=== PATIENT | male | born 1970 | race Caucasian/White ===

== ENCOUNTER 2018-07-29 18:14 | Inpatient (IN) | payer BC, OTHER ==
[2018-07-29] MEDS ORDERED: VANCOMYCIN 1 GM/VIAL ONE ×2 (19:13→22:35)
[2018-07-29] MEDS ORDERED: NA CHLORIDE 0.9% 250 ML ONE ×2 (19:13→22:33)
[2018-07-29] MEDS ORDERED: PIPER/TAZO/NS 3.375gm 3.375 GM/100 ML BAG ONE (19:14)
[2018-07-29 19:24] LABS: Absolute Lymphocytes (CBC) 1.7 K/uL (0.7-4.9); Absolute Monocytes 0.8 K/uL (0.1-1.3); Absolute Neutrophil 7.9 K/uL (1.8-8.0); Basophils % 0.4 % (0-1.3); Eosinophils % 5.4 % (0-4.4); Hematocrit 42.2 % (39.6-49.0); Lymphocytes % 15.5 % (15.3-44.8); MPV 7.8 fL (7.6-11.3); Monocytes % 6.9 % (3.3-12.3); RBC Red Blood Cell Count 4.72 M/uL (4.33-5.43)
[2018-07-29 19:35] LABS: Potassium 4.3 mmol/L (3.5-5.1)
--- NOTE | 2018-07-29 19:40 | ER ---
Nurse's Notes [facility] Name: Steve Cordero Age: 47 yrs Sex: Male : 1970 Arrival Date: 07/29/2018 Time: 18:19 Bed 23 Private MD: None, None Diagnosis: Cutaneous abscess of left foot;Cellulitis of left lower limb Presentation: 07/29 18:21 Presenting complaint: Patient states: stepped on a tack on left foot about a month ago sv and swelling/redness has increased. c/o fever/chills. Hx DM. Transition of care: patient was not received from another setting of care. Onset of symptoms was June 2018. Care prior to arrival: None. 18:21 Method Of Arrival: Ambulatory sv 18:21 Acuity: ADIA 3 sv 18:38 Risk Assessment: Do you want to hurt yourself or someone else? Patient reports no mg2 desire to harm self or others. Initial Sepsis Screen: Does the patient meet any 2 criteria? No. Patient's initial sepsis screen is negative. Does the patient have a suspected source of infection? No. Patient's initial sepsis screen is negative. Historical: - Allergies: 18:22 No Known Allergies; sv - PMHx: 18:22 Diabetes - IDDM; Hypertension; sv - PSHx: 18:22 None; sv - Immunization history:: Flu vaccine status is unknown. - Social history:: Smoking status: unknown. - Ebola Screening: : No symptoms or risks identified at this time. Screenin:38 Abuse screen: Denies threats or abuse. Denies injuries from another. Nutritional mg2 screening: No deficits noted. Tuberculosis screening: No symptoms or risk factors identified. Fall Risk None identified. Assessment: 19:30 General: Appears in no apparent distress. Behavior is appropriate for age. Pain: lp1 Complains of pain in ball of left foot. Neuro: No deficits noted. Cardiovascular: No deficits noted. Respiratory: No deficits noted. GI: No deficits noted. : No deficits noted. EENT: No deficits noted. Derm: Skin is pink, warm \T\ dry. Wound noted ball of left foot Wound is swelling noted, some purulent drainage noted. Musculoskeletal: No deficits noted. 20:30 Reassessment: Patient appears in no apparent distress at this time. Patient and/or lp1 family updated on plan of care and expected duration. Pain level reassessed. Patient is alert, oriented x 3, equal unlabored respirations, skin warm/dry/pink. Patient aware of pending admission. 21:22 Reassessment: Family at bedside, patient eating dinner. lp1 Vital Signs: 18:22 BP 135 / 86; Pulse 101; Resp 18; Temp 98.6; Pulse Ox 99% ; Weight 95.25 kg; Height 5 sv ft. 10 in. (177.80 cm); Pain 9/10; 19:30 BP 150 / 90; Pulse 91; Resp 18; Pulse Ox 97% on R/A; lp1 20:30 BP 157 / 91; Pulse 94; Resp 18; Pulse Ox 95% on R/A; lp1 21:22 BP 149 / 89; Pulse 94; Resp 18; Pulse Ox 96% on R/A; lp1 18:22 Body Mass Index 30.13 (95.25 kg, 177.80 cm) sv ED Course: 18:19 Patient arrived in ED. mr 18:19 None, None is Private Physician. mr 18:21 Triage completed. sv 18:22 Arm band placed on. sv 18:26 Claudio Worley MD is Attending Physician. gs 18:38 Chan Pugh, KRISTEN is Primary Nurse. mg2 18:38 No provider procedures requiring assistance completed. Patient did not have IV access mg2 during this emergency room visit. 18:39 Patient has correct armband on for positive identification. Door closed. mg2 19:00 Report given to KRISTEN Greenberg - IV fluids still pending. tw2 19:13 Inserted saline lock: 20 gauge in right antecubital area, using aseptic technique. jb5 Blood collected. 19:38 Honorio Zaldivar MD is Hospitalizing Provider. gs 19:44 Primary Nurse role handed off by Chan Pugh, KRISTEN lp1 19:44 Demetra Bruno, KRISTEN is Primary Nurse. lp1 Administered Medications: 19:40 Drug: Zosyn 3.375 grams Route: IVPB; Infused Over: 60 mins; Site: right antecubital; lp1 20:12 Follow up: IV Status: Completed infusion; IV Intake: 100ml lp1 20:13 Drug: vancoMYCIN 1 grams Route: IVPB; Infused Over: 2 hrs; Site: right antecubital; lp1 21:24 Follow up: IV Status: Infusion continued upon admission lp1 Intake: 20:12 IV: 100ml; Total: 100ml. lp1 Outcome: 19:39 Decision to Hospitalize by Provider. 19:46 Condition: stable lp1 19:46 Instructed on the need for admit. 21:18 Admitted to Med/surg accompanied by tech, via wheelchair, room 230, with chart, Report lp1 called to KRISTEN Guadarrama 21:37 Patient left the ED. lp1 Signatures: Zenobia Ervin RN RN Heather Phelan mr Bruno, Demetra RN KRISTEN lp1 Jodie Tamez RN RN tw2 Isatu Bang5 Claudio Worley MD MD Chan Pugh RN RN mg2 Corrections: (The following items were deleted from the chart) 19:08 19:00 Report given to KRISTEN Greenberg tw2 tw2
--- NOTE | 2018-07-29 19:40 | EDPHYS ---
Physician Documentation [facility] Name: Steve Cordero Age: 47 yrs Sex: Male : 1970 Arrival Date: 07/29/2018 Time: 18:19 Bed 23 Private MD: None, None ED Physician Claudio Worley HPI: 07/29 18:39 This 47 yrs old Male presents to ER via Ambulatory with complaints of Wound gs Infection. 19:20 The patient presents with cellulitis of the plantar aspect of left first toe and ball gs of left foot. Description: The affected area is moderate sized, draining, erythematous, fluctuant. Onset: The symptoms/episode began/occurred 5 day(s) ago, and became worse and became persistent. Possible cause(s): stepped on a tack. Associated signs and symptoms: Pertinent negatives: fever. Severity of symptoms: At their worst the symptoms were severe, in the emergency department the symptoms are unchanged. The patient has not experienced similar symptoms in the past. Historical: - Allergies: 18:22 No Known Allergies; sv - PMHx: 18:22 Diabetes - IDDM; Hypertension; sv - PSHx: 18:22 None; sv - Immunization history:: Flu vaccine status is unknown. - Social history:: Smoking status: unknown. - Ebola Screening: : No symptoms or risks identified at this time. ROS: 19:20 All other systems are negative. gs Exam: 19:20 Head/Face: Normocephalic, atraumatic. Eyes: Pupils equal round and reactive to light, gs extra-ocular motions intact. Lids and lashes normal. Conjunctiva and sclera are non-icteric and not injected. Cornea within normal limits. Periorbital areas with no swelling, redness, or edema. ENT: Nares patent. No nasal discharge, no septal abnormalities noted. Tympanic membranes are normal and external auditory canals are clear. Oropharynx with no redness, swelling, or masses, exudates, or evidence of obstruction, uvula midline. Mucous membranes moist. Neck: Trachea midline, no thyromegaly or masses palpated, and no cervical lymphadenopathy. Supple, full range of motion without nuchal rigidity, or vertebral point tenderness. No Meningismus. Chest/axilla: Normal chest wall appearance and motion. Nontender with no deformity. No lesions are appreciated. Cardiovascular: Regular rate and rhythm with a normal S1 and S2. No gallops, murmurs, or rubs. Normal PMI, no JVD. No pulse deficits. Respiratory: Lungs have equal breath sounds bilaterally, clear to auscultation and percussion. No rales, rhonchi or wheezes noted. No increased work of breathing, no retractions or nasal flaring. Abdomen/GI: Soft, non-tender, with normal bowel sounds. No distension or tympany. No guarding or rebound. No evidence of tenderness throughout. Back: No spinal tenderness. No costovertebral tenderness. Full range of motion. Neuro: Awake and alert, GCS 15, oriented to person, place, time, and situation. Cranial nerves II-XII grossly intact. Motor strength 5/5 in all extremities. Sensory grossly intact. Cerebellar exam normal. Normal gait. 19:20 Constitutional: The patient appears alert, awake, non-toxic. 19:20 Musculoskeletal/extremity: Extremities: noted in the ball of left foot: erythema, pain, tenderness, Circulation is intact in all extremities. 19:20 Skin: abscess, that is moderate sized, of the plantar aspect of left first toe, cellulitis, that is moderate. 19:39 Musculoskeletal/extremity: Edema, 2+ to the left ankle and left foot is noted. Vital Signs: 18:22 BP 135 / 86; Pulse 101; Resp 18; Temp 98.6; Pulse Ox 99% ; Weight 95.25 kg; Height 5 sv ft. 10 in. (177.80 cm); Pain 9/10; 19:30 BP 150 / 90; Pulse 91; Resp 18; Pulse Ox 97% on R/A; lp1 20:30 BP 157 / 91; Pulse 94; Resp 18; Pulse Ox 95% on R/A; lp1 21:22 BP 149 / 89; Pulse 94; Resp 18; Pulse Ox 96% on R/A; lp1 18:22 Body Mass Index 30.13 (95.25 kg, 177.80 cm) sv MDM: 18:43 Patient medically screened. gs 19:20 Differential diagnosis: abscess, cellulitis. Data reviewed: vital signs, nurses notes, gs lab test result(s). Response to treatment: There is no appreciated change of the patient's symptoms at this time, and as a result, I will admit patient. Physician consultation: Thaddeus Desai DPM regarding patient's condition, and will see patient in inpatient room. 07/29 18:43 Order name: CBC with Diff 07/29 18:43 Order name: Basic Metabolic Panel 07/29 18:43 Order name: Blood Culture* gs Administered Medications: 19:40 Drug: Zosyn 3.375 grams Route: IVPB; Infused Over: 60 mins; Site: right antecubital; lp1 20:12 Follow up: IV Status: Completed infusion; IV Intake: 100ml lp1 20:13 Drug: vancoMYCIN 1 grams Route: IVPB; Infused Over: 2 hrs; Site: right antecubital; lp1 21:24 Follow up: IV Status: Infusion continued upon admission lp1 Disposition: 07/29/18 19:39 Hospitalization ordered by Honorio Zaldivar for Inpatient Admission. Preliminary diagnosis are Cutaneous abscess of left foot, Cellulitis of left lower limb. - Bed requested for Telemetry/MedSurg (Inpatient). - Status is Inpatient Admission. lp1 - Condition is Stable. - Problem is new. - Symptoms are unchanged. UTI on Admission? No Signatures: Dispatcher [employer] EDMS Zenobia Ervin RN RN Mallory Hightower RN RN Demetra Bruno RN RN [facility] Claudio Worley MD MD Chan Pugh RN RN [facility] [place]rections: (The following items were deleted from the chart) 20:49 19:39 Hospitalization Ordered by Honorio Zaldivar MD for Inpatient Admission. Preliminary dw diagnosis is Cutaneous abscess of left foot; Cellulitis of left lower limb. Bed requested for Telemetry/MedSurg (Inpatient). Status is Inpatient Admission. Condition is Stable. Problem is new. Symptoms are unchanged. UTI on Admission? No. gs 21:37 20:49 07/29/2018 19:39 Hospitalization Ordered by Honorio Zaldivar MD for Inpatient lp1 Admission. Preliminary diagnosis is Cutaneous abscess of left foot; Cellulitis of left lower limb. Bed requested for Telemetry/MedSurg (Inpatient). Status is Inpatient Admission. Condition is Stable. Problem is new. Symptoms are unchanged. UTI on Admission? No. dw
--- NOTE | 2018-07-29 20:45 | P.HP ---
Certification for Inpatient Patient admitted to: Inpatient With expected LOS: >2 Midnights Practitioner: I am a practitioner with admitting privileges, knowledge of patient current condition, hospital course, and medical plan of care. Services: Services provided to patient in accordance with Admission requirements found in Title 42 Section 412.3 of the Code of Federal Regulations Patient History Date of Service: 07/29/18 Reason for admission: diabetic foot ulcer History of Present Illness: Mr Cordero is a 47 years old male with history of IDDM poorly controlled, HTN, who about 1 month ago step on a tack, then he developed a little wound, which keep his size for about 3 weeks. Then it start growing, he went to a clinic, where was evaluated, XR at that time did not show bone involvement, per patient report , he was treated with antibiotics (doxycycline and Levaquin), however, despite this, his wound got worse, become more swollen, painful and lately having yellowish discharge. He denied fever or chills, but has been feeling dizzy today. Lab work shows leukocytosis 11.1K, afebrile, BP within normal limits, but HR 101 bpm. Allergies No Known Allergies Allergy (Unverified 07/29/18 20:40) Home medications list reviewed: Yes - Past Medical/Surgical History -: DM II -: HTN Past Surgical History: Reviewed- Non-Contributory - Family History Family History: Reviewed- Non-Contributory - Social History Smoking Status: Former smoker Alcohol use: Yes CD- Drugs: No Place of Residence: Home Review of Systems 10-point ROS is otherwise unremarkable Physical Examination - Physical Exam General: Alert, In no apparent distress HEENT: Atraumatic, PERRLA, Mucous membr. moist/pink, EOMI, Sclerae nonicteric Neck: Supple, 2+ carotid pulse no bruit, No LAD, Without JVD or thyroid abnormality Respiratory: Clear to auscultation bilaterally, Normal air movement Cardiovascular: Regular rate/rhythm, Normal S1 S2 Gastrointestinal: Normal bowel sounds, No tenderness Musculoskeletal: No tenderness Integumentary: Skin lesion, Tenderness/swelling, Diabetic ulcer (left foot) Neurological: Normal gait, Normal speech, Normal strength at 5/5 x4 extr, Normal tone, Normal affect Lymphatics: No axilla or inguinal lymphadenopathy - Studies Laboratory Data (last 24 hrs) 07/29/18 19:08: Sodium 137, Potassium 4.3, BUN 21 H, Creatinine 1.08, Glucose 153 H 07/29/18 19:08: WBC 11.1 H, Hgb 14.0, Hct 42.2, Plt Count 227 Assessment and Plan - Problems (Diagnosis) (1) Diabetic foot ulcer associated with type 2 diabetes mellitus Current Visit: Yes Status: Acute Qualifiers: Diabetic foot ulcer location: midfoot Laterality: left Non-pressure ulcer stage: limited to breakdown of skin Qualified Code(s): E11.621 - Type 2 diabetes mellitus with foot ulcer; L97.421 - Non-pressure chronic ulcer of left heel and midfoot limited to breakdown of skin (2) Diabetes mellitus Current Visit: Yes Status: Acute Qualifiers: Diabetes mellitus type: type 2 Diabetes mellitus terminal gauger insulin use: with terminal gauger use Diabetes mellitus complication status: with skin complications Diabetes mellitus complication detail: with foot ulcer Qualified Code(s): E11.621 - Type 2 diabetes mellitus with foot ulcer; L97.509 - Non-pressure chronic ulcer of other part of unspecified foot with unspecified severity; Z79.4 - terminal gauger (current) use of insulin (3) HTN (hypertension) Current Visit: Yes Status: Acute Qualifiers: Hypertension type: essential hypertension Qualified Code(s): I10 - Essential (primary) hypertension - Plan The patient will be admitted to the hospital due to diabetic foot ulcer, start empiric IV antibiotics, pending foot MRI to R/O bone involvement, consult Dr Desai. - Advance Directives Does patient have a Living Will: No Does patient have a Durable POA for Healthcare: No
[2018-07-29] MEDS ORDERED: ONDANSETRON 4 MG/2 ML VIAL IV PRN (21:42)
[2018-07-29] MEDS: INSULIN -REGULAR HUMAN 50 UNIT/0.5 ML ML SQ SCH (21:42)
[2018-07-29] MEDS: NA CHLORIDE 0.9% 1,000 ML IV SCH (22:12)
[2018-07-29] MEDS ORDERED: VANCOMYCIN 750 MG in NA CHLORIDE 0.9% 250 ML IVPB ONE (22:15)
[2018-07-29] MEDS: ACETAMINOPHEN 500 MG TAB PO PRN (22:58)
[2018-07-30] MEDS: PIPER/TAZO/NS 3.375gm 3.375 GM/100 ML BAG IVPB SCH ×2 (01:08→05:11)
[2018-07-30] MEDS ORDERED: PIPER/TAZO/NS 3.375gm 6.750 GM/200 ML BAG ONE (01:15)
[2018-07-30 06:14] LABS: Absolute Lymphocytes (CBC) 1.9 K/uL (0.7-4.9); Absolute Monocytes 0.8 K/uL (0.1-1.3); Basophils % 0.3 % (0-1.3); Eosinophils % 6.3 % (0-4.4); Hematocrit 37.6 % (39.6-49.0); Lymphocytes % 23.7 % (15.3-44.8); MPV 7.9 fL (7.6-11.3); Monocytes % 9.5 % (3.3-12.3); RBC Red Blood Cell Count 4.23 M/uL (4.33-5.43)
[2018-07-30 06:21] LABS: Magnesium 1.8 mg/dL (1.8-2.4); Potassium 4.6 mmol/L (3.5-5.1)
[2018-07-30 08:29] LABS: Thyroid Stimulating Hormone 2.19 uIU/mL (0.360-3.740)
[2018-07-30] MEDS: VANCOMYCIN 1.75 GM in NA CHLORIDE 0.9% 500 ML IVPB SCH ×2 (08:41→21:38)
[2018-07-30] MEDS: INSULIN -REGULAR HUMAN 50 UNIT/0.5 ML ML SQ SCH ×4 (08:42→21:41)
[2018-07-30] MEDS: NA CHLORIDE 0.9% 1,000 ML IV SCH ×2 (08:42→17:10)
[2018-07-30] MEDS ORDERED: MAGNESIUM SULFATE 1 gm IVPB 1 GM/100 ML BAG IV ONE (09:00)
--- NOTE | 2018-07-30 10:37 | RAD REPORT ---
EXAM DESCRIPTION: MRI - Foot Left Wo Cont - 07/30/2018 9:25 am CLINICAL HISTORY: Evaluate left foot ulcer Diabetic foot ulcer, possible osteomyelitis. COMPARISON: No comparisons FINDINGS: Ill-defined soft tissue edema and thickening is present along the plantar aspect of the fo refoot adjacent to the first MTP joint. Small focal soft tissue ulceration is present in the region. T1 marrow signal throughout the forefoot osseous structures is maintained. There is no evidence of os teomyelitis. No drainable fluid collection is seen. IMPRESSION: No evidence of osteomyelitis is identified.
--- NOTE | 2018-07-30 11:23 | P.CNS ---
Date of Consult: 07/30/18 Reason for Consult: wound left foot Chief Complaint: diabetic foot ulcer History of Present Illness: Patient states that about 1 month ago he stepped on a tack while walking in [place]. Noticed a clicking sound and found the tack. When he got home he took the shoe off and notice a small puncture wound. He then treated the wound on his own for three weeks with topical creams. Noticed increased redness and discoloration to wound and was seen in a clinic near [place]. Xrays negative for bone involvement. Was placed on Doxycyline and Levaquin without resolution. The patient noticed that the wound was getting worse and returned to the clinic and they wanted to admit him. He is from [place] and wanted to get home. Patient then presented to [facility] ER and was admitted Allergies No Known Allergies Allergy (Verified 07/29/18 22:11) Home Medications: Doxycycline Hyclate [Vibramycin] 100 mg PO DAILY 07/29/18 Ibuprofen [Motrin Ib] 2 tab PO DAILY 07/29/18 Insulin 70/30 NPH/Reg Human [Novolin 70/30*] 25 units PO BID 07/29/18 Metformin ER [Glucophage ER*] 1 tab PO 0630 07/29/18 levoFLOXacin [Levaquin] 750 mg PO DAILY 07/29/18 - Past Medical/Surgical History Diabetic: Yes -: DM II -: HTN - Social History Smoking Status: Unknown if ever smoked Alcohol use: Yes CD- Drugs: No Caffeine use: Yes Place of Residence: Home Review of Systems 10-point ROS is otherwise unremarkable Physical Examination Temp Pulse Resp BP Pulse Ox 97.8 F 82 17 127/81 92 07/30/18 08:00 07/30/18 08:00 07/30/18 08:00 07/30/18 08:00 07/30/18 08:00 General: Alert, In no apparent distress, Oriented x3 Cardiovascular: No edema, Normal pulses Capillary refill: <2 Seconds Musculoskeletal: No clubbing, No swelling, No contractures, No erythema, No tenderness, No warmth Integumentary: Diabetic ulcer (wound sub left first mpj with bullous formation. Upon debridement of lesion noted a puncture wound plantar central left 1st mpj with periwound erythema. Area was probed with a hemostat and noted to track at 2:00 toward the second digit. No purulence expressed from wound. No probing to bone. ) Neurological: Abnormal sensation (insensate left foot) Laboratory Data (last 24 hrs) 07/29/18 19:08: Sodium 137, Potassium 4.3, BUN 21 H, Creatinine 1.08, Glucose 153 H 07/29/18 19:08: WBC 11.1 H, Hgb 14.0, Hct 42.2, Plt Count 227 Imagings Data: MRI left foot negative for osteomyelitis - Problems (1) Diabetic foot ulcer associated with type 2 diabetes mellitus Current Visit: Yes Status: Acute Plan: Pack wound bid with nugauze and continue current iv antibiotics. Wound was cultured, can tailor antibiotics to specimen when wound culture/sensitivity returns Qualifiers: Diabetic foot ulcer location: midfoot Laterality: left Non-pressure ulcer stage: limited to breakdown of skin Qualified Code(s): E11.621 - Type 2 diabetes mellitus with foot ulcer; L97.421 - Non-pressure chronic ulcer of left heel and midfoot limited to breakdown of skin Physician Review: Patient Assessed, Agree with Above Assessment and Plan Critical Care: Yes Time Spent Managing Pts care (In Minutes): 30
[2018-07-30] MEDS: ACETAMINOPHEN 500 MG TAB PO PRN (13:44)
[2018-07-30] MEDS ORDERED: HYDROCODONE/APAP 7.5/325 MG TAB PO PRN (14:11)
[2018-07-30] MEDS ORDERED: TRAMADOL HCL 50 MG TAB PO PRN (14:11)
[2018-07-30] MEDS ORDERED: D50W 25 GM/50 ML SYRINGE IV PRN (14:11)
[2018-07-30] MEDS ORDERED: GLUCAGON 1 MG/VIAL IM PRN (14:11)
--- NOTE | 2018-07-30 14:20 | P.PN ---
Subjective Date of Service: 07/30/18 Primary Care Provider: none Chief Complaint: diabetic foot ulcer Subjective: Doing well Physical Examination - Vital Signs Temperature: 98.4 F Blood Pressure: 152/93 Pulse: 75 Respirations: 18 Pulse Ox (%): 99 - Physical Exam General: Alert, In no apparent distress, Oriented x3, Cooperative HEENT: Atraumatic Neck: Supple Respiratory: Clear to auscultation bilaterally, Normal air movement Cardiovascular: Normal pulses, Regular rate/rhythm Gastrointestinal: Normal bowel sounds, Soft and benign, Non-distended Musculoskeletal: Other (Erythema and swelling to the left plantar aspect of the forefoot near the great toe.) Neurological: Normal speech, Normal strength at 5/5 x4 extr, Normal tone, Normal affect - Studies Laboratory Data (last 24 hrs) 07/29/18 19:08: Sodium 137, Potassium 4.3, BUN 21 H, Creatinine 1.08, Glucose 153 H 07/29/18 19:08: WBC 11.1 H, Hgb 14.0, Hct 42.2, Plt Count 227 Medications List Reviewed: Yes Assessment & Plan Discharge Plan: Home Plan to discharge in: 72 Hours Physician Review Additional Text: Impression: Diabetic left foot cellulitis to the plantar aspect of the forefoot near the great toe Diabetes mellitus type 2 uncontrolled Hypertension Diabetic neuropathy Obesity, BMI-30 Plan: Diabetic left foot cellulitis to the plantar aspect of the forefoot near the great toe: MRI shows no osteomyelitis. Case discussed with podiatry. Podiatry performed I/D at bedside. Antibiotics adjusted. Patient now on IV vancomycin and cefepime. Will continue to monitor closely. Patient may require further debridement. Anticipate discharge in the next 3-5 days. Diabetes mellitus type 2 uncontrolled: A1c elevated. Will start basal insulin- Lantus 10 units subcu twice daily. Will monitor and adjust appropriately. Will provide sliding scale. Hypertension: Blood pressure slightly elevated. Will start low-dose lisinopril. Will monitor and adjust. Diabetic neuropathy: Will provide medication for pain. Will provide Neurontin. Obesity, BMI-30: Will address lifestyle modification education. Time Spent Managing Pts Care (In Minutes): 55
[2018-07-30] MEDS ORDERED: PIPER/TAZO/NS 3.375gm 3.375 GM/100 ML BAG IVPB SCH (15:00)
[2018-07-30 16:17] LABS: Urine Appearance CLEAR; Urine Bilirubin NEGATIVE (NEG); Urine Blood NEGATIVE (NEG); Urine Color YELLOW; Urine Glucose 2+ (NEG); Urine Protein NEGATIVE (NEG); Urine pH 5.5 (5.0-7.0)
[2018-07-30 16:20] LABS: Urine Microscopic Reflex NO UMIC
[2018-07-30] MEDS: ENOXAPARIN 40 MG/0.4 ML SQ SCH (17:10)
[2018-07-30] MEDS: CEFEPIME/SWI 1gm 10 ML IVP SCH (17:11)
[2018-07-30] MEDS ORDERED: LISINOPRIL 5 MG TAB PO SCH (21:00)
[2018-07-30] MEDS: FAMOTIDINE 20 MG TAB PO SCH (21:39)
[2018-07-30] MEDS: INSULIN GLARGINE 100 UNITS/ML SQ SCH (21:40)
[2018-07-31] MEDS: NA CHLORIDE 0.9% 1,000 ML IV SCH ×3 (06:33→23:42)
[2018-07-31 06:50] LABS: Absolute Lymphocytes (CBC) 1.5 K/uL (0.7-4.9); Absolute Monocytes 0.6 K/uL (0.1-1.3); Absolute Neutrophil 6.4 K/uL (1.8-8.0); Basophils % 0.5 % (0-1.3); Eosinophils % 3.3 % (0-4.4); Hematocrit 35.4 % (39.6-49.0); MPV 7.9 fL (7.6-11.3); Monocytes % 6.4 % (3.3-12.3); RBC Red Blood Cell Count 4.02 M/uL (4.33-5.43)
--- NOTE | 2018-07-31 06:56 | RAD REPORT ---
EXAM DESCRIPTION: US - Lower Extremity Arterial Bilat - 07/30/2018 10:32 pm CLINICAL HISTORY: Peripheral vascular disease COMPARISON: None. TECHNIQUE: Bilateral brachial artery pressure measurements were obtained. Waveforms were obtained al sally the length of each lower extremity. Ankle pressure measurements were obtained with index values c alculated. Visual inspection of the lower extremity arterial tree performed. FINDINGS: Bilateral brachial artery pressure measurements are symmetric. DENISE values are 1.12 on the right and 1.15 on the left. Toe index values are 0.88 on the right and 1.04 on the left. No occlusion or focal flow restricting lesion identifiable. Triphasic waveform pattern is seen along the length of the right lower extremity. No significant degree of vascular disease identifiable. No significant atherosclerotic changes in the left lower extremity. Triphasic and monophasic waveform patterns were seen on the left. IMPRESSION: No significant lower extremity peripheral arterial disease. No occlusion or flow restric ting lesion. DENISE values are normal range.
[2018-07-31 06:58] LABS: BUN Blood Urea Nitrogen 12 mg/dL (7-18); Bicarbonate 26 mmol/L (21-32); Glucose Level 201 mg/dL (74-106); HDL Cholesterol 24 mg/dL (40-60); LDL Cholesterol, Calculated 94 (<130); Magnesium 1.8 mg/dL (1.8-2.4); Potassium 4.1 mmol/L (3.5-5.1); Sodium Level 140 mmol/L (136-145)
[2018-07-31] MEDS: INSULIN -REGULAR HUMAN 50 UNIT/0.5 ML ML SQ SCH ×5 (07:30→21:00)
--- NOTE | 2018-07-31 07:40 | P.PN ---
Subjective Date of Service: 07/31/18 Primary Care Provider: none Chief Complaint: diabetic foot ulcer Subjective: No C/O voiced, Tolerating diet, Improving, Doing well Review of Systems 10-point ROS is otherwise unremarkable Physical Examination - Vital Signs Temperature: 97.5 F Blood Pressure: 90/52 Pulse: 77 Respirations: 16 Pulse Ox (%): 97 - Physical Exam General: Alert, In no apparent distress, Oriented x3 Cardiovascular: No edema, Normal pulses Capillary refill: <2 Seconds Musculoskeletal: No clubbing, No swelling, No contractures, No erythema, No tenderness, No warmth Integumentary: Diabetic ulcer (ulceration plantar left 1st mpj is improved. Decreased erythema, decreased edema, no purulence. Tracking is decreasing in depth. ) Neurological: Abnormal sensation - Studies Medications List Reviewed: Yes Assessment And Plan - Current Problems (Diagnosis) (1) Diabetic foot ulcer associated with type 2 diabetes mellitus Current Visit: Yes Status: Acute Plan: Pack wound bid with nugauze and continue current iv antibiotics. Wound was cultured, can tailor antibiotics to specimen when wound culture/sensitivity returns Qualifiers: Diabetic foot ulcer location: midfoot Laterality: left Non-pressure ulcer stage: limited to breakdown of skin Qualified Code(s): E11.621 - Type 2 diabetes mellitus with foot ulcer; L97.421 - Non-pressure chronic ulcer of left heel and midfoot limited to breakdown of skin - Plan Continue current IV antibiotics until wound cultures return. Will tailor antibiotics at that time. Continue packing wound bid and nonweightbearing left foot. Patient to follow up in wound care 08/04/18 Physician Review: Patient Assessed, Agree with Above Assessment and Plan Physician Review Additional Text: Impression: Diabetic left foot cellulitis to the plantar aspect of the forefoot near the great toe Diabetes mellitus type 2 uncontrolled Hypertension Diabetic neuropathy Obesity, BMI-30 Plan: Diabetic left foot cellulitis to the plantar aspect of the forefoot near the great toe: MRI shows no osteomyelitis. Case discussed with podiatry. Podiatry performed I/D at bedside. Antibiotics adjusted. Patient now on IV vancomycin and cefepime. Will continue to monitor closely. Patient may require further debridement. Anticipate discharge in the next 3-5 days. Diabetes mellitus type 2 uncontrolled: A1c elevated. Will start basal insulin- Lantus 10 units subcu twice daily. Will monitor and adjust appropriately. Will provide sliding scale. Hypertension: Blood pressure slightly elevated. Will start low-dose lisinopril. Will monitor and adjust. Diabetic neuropathy: Will provide medication for pain. Will provide Neurontin. Obesity, BMI-30: Will address lifestyle modification education.
[2018-07-31] MEDS: INSULIN GLARGINE 100 UNITS/ML SQ SCH ×2 (08:35→21:40)
[2018-07-31] MEDS: CEFEPIME/SWI 1gm 10 ML IVP SCH (08:36)
[2018-07-31] MEDS: FAMOTIDINE 20 MG TAB PO SCH ×2 (08:37→20:01)
[2018-07-31] MEDS ORDERED: MAGNESIUM SULFATE 1 gm IVPB 1 GM/100 ML BAG IV ONE (09:00)
[2018-07-31] MEDS ORDERED: CEFEPIME 1 GM/VIAL IV SCH (09:00)
[2018-07-31] MEDS ORDERED: NA CHLORIDE 0.9% 500 ML IV ONE (09:22)
--- NOTE | 2018-07-31 09:25 | P.PN ---
Subjective Date of Service: 07/31/18 Primary Care Provider: none Chief Complaint: diabetic foot ulcer Subjective: Improving, Doing well Physical Examination - Vital Signs Temperature: 97.5 F Blood Pressure: 90/52 Pulse: 77 Respirations: 16 Pulse Ox (%): 97 - Physical Exam General: Alert, In no apparent distress, Cooperative HEENT: Atraumatic Neck: Supple Respiratory: Clear to auscultation bilaterally, Normal air movement Cardiovascular: Normal pulses, Regular rate/rhythm Gastrointestinal: Normal bowel sounds, Soft and benign, Non-distended Musculoskeletal: Other (Swelling to the foot improved. Status post I and D yesterday) - Studies Medications List Reviewed: Yes Assessment & Plan Discharge Plan: Home Plan to discharge in: 48 Hours Physician Review Additional Text: Impression: Diabetic left foot cellulitis to the plantar aspect of the forefoot near the great toe status post bedside at Diabetes mellitus type 2 uncontrolled Hypertension Diabetic neuropathy Obesity, BMI-30 Plan: Diabetic left foot cellulitis to the plantar aspect of the forefoot near the great toe status post bedside I and D: MRI shows no osteomyelitis. Case discussed with podiatry. Will continue with IV antibiotic therapy. Await wound culture results. Anticipate discharge in the next 48 hr if improved. Patient will need to follow up with podiatry next [facility]. Will ambulate patient. Continue monitor closely. Diabetes mellitus type 2 uncontrolled: A1c elevated. Patient started on Lantus. Will consider adding metformin at discharge. Lifestyle modification education addressed. Hypertension: Blood pressure was low today. Will hold lisinopril. Will provide IV fluids. Will monitor closely. Patient may not require medication at discharge. Diabetic neuropathy: Will continue to provide medication for pain. Will also provide Neurontin. Obesity, BMI-30: Will continue to address lifestyle modification education. Time Spent Managing Pts Care (In Minutes): 55
[2018-07-31] MEDS: VANCOMYCIN 1.75 GM in NA CHLORIDE 0.9% 500 ML IVPB SCH ×2 (11:05→20:00)
[2018-07-31] MEDS ORDERED: HYDRALAZINE HCL 20 MG/ML VIAL IV PRN (11:55)
[2018-07-31] MEDS: ENOXAPARIN 40 MG/0.4 ML SQ SCH (17:18)
[2018-07-31] MEDS: ACETAMINOPHEN 500 MG TAB PO PRN (21:45)
[2018-08-01 05:31] LABS: Absolute Lymphocytes (CBC) 1.6 K/uL (0.7-4.9); Absolute Monocytes 0.6 K/uL (0.1-1.3); Absolute Neutrophil 5.9 K/uL (1.8-8.0); Basophils % 0.5 % (0-1.3); Eosinophils % 4.1 % (0-4.4); Hematocrit 33.6 % (39.6-49.0); Lymphocytes % 19.2 % (15.3-44.8); MPV 7.9 fL (7.6-11.3); Monocytes % 7.5 % (3.3-12.3); RBC Red Blood Cell Count 3.79 M/uL (4.33-5.43)
[2018-08-01 05:34] LABS: BUN Blood Urea Nitrogen 9 mg/dL (7-18); Bicarbonate 30 mmol/L (21-32); Glucose Level 153 mg/dL (74-106); Magnesium 1.9 mg/dL (1.8-2.4); Potassium 3.8 mmol/L (3.5-5.1); Sodium Level 140 mmol/L (136-145)
[2018-08-01] MEDS: INSULIN -REGULAR HUMAN 50 UNIT/0.5 ML ML SQ SCH ×4 (07:30→21:00)
[2018-08-01] MEDS ORDERED: POTASSIUM CL SA 10 MEQ TAB PO ONE (09:00)
[2018-08-01] MEDS: NA CHLORIDE 0.9% 1,000 ML IV SCH ×2 (09:14→19:42)
[2018-08-01] MEDS: VANCOMYCIN 1.75 GM in NA CHLORIDE 0.9% 500 ML IVPB SCH ×2 (09:17→22:51)
[2018-08-01] MEDS: FAMOTIDINE 20 MG TAB PO SCH ×2 (09:17→20:40)
[2018-08-01] MEDS: CEFEPIME/SWI 1gm 10 ML IVP SCH (09:18)
[2018-08-01] MEDS: INSULIN GLARGINE 100 UNITS/ML SQ SCH ×2 (09:53→20:39)
--- NOTE | 2018-08-01 11:24 | P.PN ---
Subjective Date of Service: 08/01/18 Primary Care Provider: none Chief Complaint: diabetic foot ulcer Subjective: Improving Physical Examination - Vital Signs Temperature: 97.3 F Blood Pressure: 87/52 Pulse: 79 Respirations: 18 Pulse Ox (%): 98 - Physical Exam General: Alert, In no apparent distress, Oriented x3, Cooperative HEENT: Atraumatic Neck: Supple Respiratory: Clear to auscultation bilaterally, Normal air movement Cardiovascular: Normal pulses, Regular rate/rhythm Gastrointestinal: Normal bowel sounds, Soft and benign, Non-distended Integumentary: Other (Erythema and swelling to the left forefoot improved.) - Studies Medications List Reviewed: Yes Assessment & Plan Discharge Plan: Home Plan to discharge in: 24 Hours Physician Review Additional Text: Impression: Diabetic left foot cellulitis to the plantar aspect of the forefoot near the great toe status post bedside at Diabetes mellitus type 2 uncontrolled Hypertension Diabetic neuropathy Obesity, BMI-30 Plan: Diabetic left foot cellulitis to the plantar aspect of the forefoot near the great toe status post bedside I and D: MRI shows no osteomyelitis. Case discussed with podiatry yesterday. Will continue with IV antibiotic therapy. Await wound culture results. Anticipate discharge weekly tomorrow. Will ambulate patient. Patient will need to follow up with [facility]iatry [facility]. Continue monitor closely. Diabetes mellitus type 2 uncontrolled: A1c elevated. Patient currently on Lantus. Will consider adding metformin at discharge. Lifestyle modification education addressed. Overall stable Hypertension: Blood pressure was low today. I will continue to hold lisinopril. Will check orthostatics and verify blood pressure readings. Patient clinically appears stable on my exam. No headaches, dizziness per patient. Patient ambulating well. Patient may not require medication at discharge. Diabetic neuropathy: Will continue to provide medication for pain. Will also provide Neurontin. Obesity, BMI-30: Will continue to address lifestyle modification education. Time Spent Managing Pts Care (In Minutes): 55
[2018-08-01] MEDS: ENOXAPARIN 40 MG/0.4 ML SQ SCH (17:13)
[2018-08-01] MEDS: ACETAMINOPHEN 500 MG TAB PO PRN (20:40)
[2018-08-02] MEDS: NA CHLORIDE 0.9% 1,000 ML IV SCH (02:27)
[2018-08-02 06:04] LABS: BUN Blood Urea Nitrogen 15 mg/dL (7-18); Bicarbonate 30 mmol/L (21-32); Glucose Level 170 mg/dL (74-106); Magnesium 1.8 mg/dL (1.8-2.4); Potassium 3.8 mmol/L (3.5-5.1); Sodium Level 143 mmol/L (136-145)
[2018-08-02 06:12] LABS: Absolute Lymphocytes (CBC) 1.6 K/uL (0.7-4.9); Absolute Monocytes 0.5 K/uL (0.1-1.3); Absolute Neutrophil 6.2 K/uL (1.8-8.0); Basophils % 0.5 % (0-1.3); Eosinophils % 3.5 % (0-4.4); Hematocrit 35.1 % (39.6-49.0); Lymphocytes % 18.4 % (15.3-44.8); MPV 8.1 fL (7.6-11.3); Monocytes % 6.2 % (3.3-12.3); RBC Red Blood Cell Count 4.01 M/uL (4.33-5.43)
[2018-08-02] MEDS ORDERED: MAGNESIUM SULFATE 1 gm IVPB 1 GM/100 ML BAG IV ONE (06:45)
[2018-08-02] MEDS: INSULIN -REGULAR HUMAN 50 UNIT/0.5 ML ML SQ SCH ×4 (08:41→20:05)
[2018-08-02] MEDS: FAMOTIDINE 20 MG TAB PO SCH ×2 (08:41→20:02)
[2018-08-02] MEDS: INSULIN GLARGINE 100 UNITS/ML SQ SCH ×2 (08:42→20:37)
[2018-08-02] MEDS: VANCOMYCIN 1.75 GM in NA CHLORIDE 0.9% 500 ML IVPB SCH ×2 (08:43→20:03)
[2018-08-02] MEDS: CEFEPIME/SWI 1gm 10 ML IVP SCH ×2 (08:44→20:03)
[2018-08-02] MEDS ORDERED: POTASSIUM 25 MEQ EFFERV TAB PO ONE (09:00)
--- NOTE | 2018-08-02 10:05 | P.PN ---
Subjective Date of Service: 08/02/18 Primary Care Provider: none Chief Complaint: diabetic foot ulcer Subjective: Other (Patient with increased swelling to the left foot.) Physical Examination - Vital Signs Temperature: 97 F Blood Pressure: 139/74 Pulse: 78 Respirations: 18 Pulse Ox (%): 97 - Physical Exam General: Alert, In no apparent distress, Oriented x3, Cooperative HEENT: Atraumatic Neck: Supple Respiratory: Clear to auscultation bilaterally, Normal air movement Cardiovascular: Normal pulses, Regular rate/rhythm Gastrointestinal: Normal bowel sounds, Soft and benign, Non-distended, No masses , No rebound, No guarding Integumentary: Other (Increased swelling to the left foot. Mild erythema noted. Some warmth noted. Slightly worse from yesterday.) Neurological: Normal speech, Normal strength at 5/5 x4 extr, Normal tone, Normal affect - Studies Medications List Reviewed: Yes Assessment & Plan Discharge Plan: Home Plan to discharge in: 24 Hours Physician Review Additional Text: Impression: Diabetic left foot cellulitis to the plantar aspect of the forefoot near the great toe status post bedside at Diabetes mellitus type 2 uncontrolled Hypertension Diabetic neuropathy Obesity, BMI-30 Plan: Diabetic left foot cellulitis to the plantar aspect of the forefoot near the great toe status post bedside I and D: MRI shows no osteomyelitis. Increased swelling and erythema noted to the left foot compared to yesterday. Case discussed with podiatry. Will keep the patient NPO as the patient will likely require further debridement. Continue IV antibiotic therapy. White count within normal range. Patient afebrile. Anticipate discharge in the next 24-48 hr if improvement noted. Diabetes mellitus type 2 uncontrolled: A1c elevated. Continue with Lantus. Will consider adding metformin at discharge. Lifestyle modification education addressed. Overall stable Hypertension: Blood pressure was slightly low yesterday. Patient currently off medication at this time. Will monitor off medication. Patient may require low-dose Rodriguez at discharge. Diabetic neuropathy: Will continue to provide medication for pain. Will also provide Neurontin. Obesity, BMI-30: Will continue to address lifestyle modification education. Time Spent Managing Pts Care (In Minutes): 55
--- NOTE | 2018-08-02 12:02 | P.PN ---
Subjective Date of Service: 08/02/18 Primary Care Provider: none Chief Complaint: diabetic foot ulcer Subjective: New changes (Patient notes increase in swelling to left foot. No increase in pain) Review of Systems 10-point ROS is otherwise unremarkable Physical Examination - Vital Signs Temperature: 97 F Blood Pressure: 139/74 Pulse: 78 Respirations: 18 Pulse Ox (%): 97 - Physical Exam General: Alert, In no apparent distress, Oriented x3 Cardiovascular: Normal pulses Capillary refill: <2 Seconds Musculoskeletal: No clubbing, No swelling, No contractures, Erythema, Tenderness (erythema and edema noted plantar left foot, slightly increased compared to two days ago.) Integumentary: Diabetic ulcer (wound plantar left 1st mpj had no packing in it. Cotton tip applicator used to probe the wound with tracking noted to be 3.5 cm at two o'clock. Area of pain on palpation proximal to wound was probed with no purulence being exuded from wound. No probing to bone. ) Neurological: Abnormal sensation - Studies Medications List Reviewed: Yes Assessment And Plan - Current Problems (Diagnosis) (1) Diabetic foot ulcer associated with type 2 diabetes mellitus Current Visit: Yes Status: Acute Plan: Pack wound bid with nugauze and continue current iv antibiotics. Wound was cultured, can tailor antibiotics to specimen when wound culture/sensitivity returns Qualifiers: Diabetic foot ulcer location: midfoot Laterality: left Non-pressure ulcer stage: limited to breakdown of skin Qualified Code(s): E11.621 - Type 2 diabetes mellitus with foot ulcer; L97.421 - Non-pressure chronic ulcer of left heel and midfoot limited to breakdown of skin - Plan Continue current IV antibiotics until wound cultures return. Will tailor antibiotics at that time. Continue packing wound bid and nonweightbearing left foot. Patient to follow up in wound care 08/04/18 Patient to have wound packed bid. Without having the wound packed the area will continue to swell and have a possiblity to harbor infection Physician Review: Patient Assessed, Agree with Above Assessment and Plan Physician Review Additional Text: Impression: Diabetic left foot cellulitis to the plantar aspect of the forefoot near the great toe status post bedside at Diabetes mellitus type 2 uncontrolled Hypertension Diabetic neuropathy Obesity, BMI-30 Plan: Diabetic left foot cellulitis to the plantar aspect of the forefoot near the great toe status post bedside I and D: MRI shows no osteomyelitis. Increased swelling and erythema noted to the left foot compared to yesterday. Case discussed with podiatry. Will keep the patient NPO as the patient will likely require further debridement. Continue IV antibiotic therapy. White count within normal range. Patient afebrile. Anticipate discharge in the next 24-48 hr if improvement noted. Diabetes mellitus type 2 uncontrolled: A1c elevated. Continue with Lantus. Will consider adding metformin at discharge. Lifestyle modification education addressed. Overall stable Hypertension: Blood pressure was slightly low yesterday. Patient currently off medication at this time. Will monitor off medication. Patient may require low-dose Rodriguez at discharge. Diabetic neuropathy: Will continue to provide medication for pain. Will also provide Neurontin. Obesity, BMI-30: Will continue to address lifestyle modification education.
[2018-08-02] MEDS: ENOXAPARIN 40 MG/0.4 ML SQ SCH (17:16)
[2018-08-02] MEDS: ACETAMINOPHEN 500 MG TAB PO PRN (20:03)
[2018-08-02] MEDS: GABAPENTIN 100 MG CAP PO PRN (20:08)
[2018-08-03] MEDS: INSULIN -REGULAR HUMAN 50 UNIT/0.5 ML ML SQ SCH ×2 (07:30→11:30)
--- NOTE | 2018-08-03 08:21 | P.DS ---
Admission Date: 07/29/18 Discharge Date: 08/03/18 Primary Care Provider: none Disposition: ROUTINE DISCHARGE Discharge Condition: GOOD Reason for Admission: diabetic foot ulcer Consultations: Podiatry-Dr. Desai Procedures: MRI: COMPARISON: No comparisons FINDINGS: Ill-defined soft tissue edema and thickening is present along the plantar aspect of the forefoot adjacent to the first MTP joint. Small focal soft tissue ulceration is present in the region. T1 marrow signal throughout the forefoot osseous structures is maintained. There is no evidence of osteomyelitis. No drainable fluid collection is seen. IMPRESSION: No evidence of osteomyelitis is identified Vascular doppler: COMPARISON: None. TECHNIQUE: Bilateral brachial artery pressure measurements were obtained. Waveforms were obtained along the length of each lower extremity. Ankle pressure measurements were obtained with index values calculated. Visual inspection of the lower extremity arterial tree performed. FINDINGS: Bilateral brachial artery pressure measurements are symmetric. DENISE values are 1.12 on the right and 1.15 on the left. Toe index values are 0.88 on the right and 1.04 on the left. No occlusion or focal flow restricting lesion identifiable. Triphasic waveform pattern is seen along the length of the right lower extremity. No significant degree of vascular disease identifiable. No significant atherosclerotic changes in the left lower extremity. Triphasic and monophasic waveform patterns were seen on the left. IMPRESSION: No significant lower extremity peripheral arterial disease. No occlusion or flow restricting lesion. DENISE values are normal range. Medical Problem List: Vital Signs/Physical Exam: Temp Pulse Resp BP Pulse Ox 97.2 F 64 20 139/78 96 08/03/18 04:00 08/03/18 04:00 08/03/18 04:00 08/03/18 04:00 08/03/18 04:00 Laboratory Data at Discharge: WBC 8.7 K/uL (4.3-10.9) 08/02/18 05:03 Hgb 12.0 g/dL (13.6-17.9) L 08/02/18 05:03 Hct 35.1 % (39.6-49.0) L 08/02/18 05:03 Plt Count 225 K/uL (152-406) 08/02/18 05:03 Sodium 143 mmol/L (136-145) 08/02/18 05:03 Potassium 3.8 mmol/L (3.5-5.1) 08/02/18 05:03 BUN 15 mg/dL (7-18) 08/02/18 05:03 Creatinine 0.87 mg/dL (0.55-1.3) 08/02/18 05:03 Glucose 170 mg/dL (74-106) H 08/02/18 05:03 Magnesium 1.8 mg/dL (1.8-2.4) 08/02/18 05:03 Triglycerides 82 mg/dL (<150) 07/31/18 06:29 Cholesterol 134 mg/dL (<200) 07/31/18 06:29 HDL Cholesterol 24 mg/dL (40-60) L 07/31/18 06:29 Cholesterol/HDL Ratio 5.58 07/31/18 06:29 Home Medications: Doxycycline Hyclate [Vibramycin] 100 mg PO DAILY 07/29/18 Ibuprofen [Motrin Ib] 2 tab PO DAILY 07/29/18 Insulin 70/30 NPH/Reg Human [Novolin 70/30*] 25 units PO BID 07/29/18 Metformin ER [Glucophage ER*] 1 [place] [address]/29/18 levoFLOXacin [Levaquin] 750 mg PO DAILY 07/29/18
--- NOTE | 2018-08-03 08:29 | P.DS ---
Admission Date: 07/29/18 Discharge Date: 08/03/18 Primary Care Provider: none Disposition: ROUTINE DISCHARGE Discharge Condition: GOOD Reason for Admission: diabetic foot ulcer Consultations: Podiatry-Dr. Desai Procedures: MRI: COMPARISON: No comparisons FINDINGS: Ill-defined soft tissue edema and thickening is present along the plantar aspect of the forefoot adjacent to the first MTP joint. Small focal soft tissue ulceration is present in the region. T1 marrow signal throughout the forefoot osseous structures is maintained. There is no evidence of osteomyelitis. No drainable fluid collection is seen. IMPRESSION: No evidence of osteomyelitis is identified Vascular doppler: COMPARISON: None. TECHNIQUE: Bilateral brachial artery pressure measurements were obtained. Waveforms were obtained along the length of each lower extremity. Ankle pressure measurements were obtained with index values calculated. Visual inspection of the lower extremity arterial tree performed. FINDINGS: Bilateral brachial artery pressure measurements are symmetric. DENISE values are 1.12 on the right and 1.15 on the left. Toe index values are 0.88 on the right and 1.04 on the left. No occlusion or focal flow restricting lesion identifiable. Triphasic waveform pattern is seen along the length of the right lower extremity. No significant degree of vascular disease identifiable. No significant atherosclerotic changes in the left lower extremity. Triphasic and monophasic waveform patterns were seen on the left. IMPRESSION: No significant lower extremity peripheral arterial disease. No occlusion or flow restricting lesion. DENISE values are normal range. Medical Problem List: Diabetic left foot cellulitis to the plantar aspect of the forefoot near the great toe secondary to puncture wound and failed outpatient therapy status post bedside I/D Diabetes mellitus type 2 uncontrolled, A1c 9.1 Hypertension Diabetic neuropathy Obesity, BMI-30 Brief History of Present Illness: 47-year-old male presented to the emergency room with cellulitis to the left forefoot and great toe. Patient had stepped on a tack about 1 month ago. He was started on antibiotic therapy-Levaquin/doxycycline by an out of town clinic. Patient was to establish care with podiatry but was admitted for further treatment. Hospital Course: Patient presented with diabetic foot cellulitis secondary to puncture wound to the plantar aspect of the left forefoot near the great toe. Patient failed outpatient antibiotic therapy. Patient admitted for IV antibiotic therapy. MRI shows no osteomyelitis. Arterial Doppler shows no peripheral vascular disease. Podiatry was consulted. Podiatry performed bedside I and D. His condition slowly improved. Patient required further wound care during his stay as packing was not done adequately. This was addressed by podiatry and specific instructions were given. This was followed with improvement. Blood and wound cultures negative. At discharge patient without any significant pain improved. At discharge patient will continue with Augmentin 875 mg 1 pill twice daily and doxycycline 100 mg 1 pill twice daily for 10 days. Patient will continue with wound care including packing. Patient to follow podiatry recommendations and instructions. Patient will be taught prior to discharge. Patient will [facility] for further monitoring. Patient with underlying diabetes mellitus type 2. This is uncontrolled. Patient previously on metformin and insulin 70/30. A1c 9.1. Medication was adjusted during his stay for better diabetic control. At discharge blood sugars better controlled. Patient will continue with Levemir 10 units subcu twice daily and metformin 500 mg 1 pill twice daily. Patient to monitor his blood sugars at least twice daily. Recommend to maintain blood sugars less 140 fasting and less than 200 after meals. Further adjustment can be done by his PCP. Patient to establish care with PCP in the area for continued management. Diabetic education along with medication education will be provided at discharge. Patient with hypertension. Medication adjusted during his stay. At discharge he will continue with lisinopril 5 mg daily. Further adjustment can be done by his PCP. Patient with diabetic neuropathy. Patient will continue with Neurontin 100 mg 1 pill twice daily as needed for pain. Further adjustment can be done by his PCP. Patient with obesity, BMI 30. Lifestyle modification education provided. Vital Signs/Physical Exam: Temp Pulse Resp BP Pulse Ox 97.2 F 64 20 139/78 96 08/03/18 04:00 08/03/18 04:00 08/03/18 04:00 08/03/18 04:00 08/03/18 04:00 General: Alert, In no apparent distress, Oriented x3, Cooperative HEENT: Atraumatic Neck: Supple Respiratory: Clear to auscultation bilaterally, Normal air movement Cardiovascular: Normal pulses, Regular rate/rhythm Gastrointestinal: Normal bowel sounds, Soft and benign, Non-distended, No tenderness, No masses, No rebound, No guarding Integumentary: Other (Erythema and swelling to the left foot significantly improved. Packing in place.) Neurological: Normal speech, Normal strength at 5/5 x4 extr, Normal tone, Normal affect Laboratory Data at Discharge: WBC 8.7 K/uL (4.3-10.9) 08/02/18 05:03 Hgb 12.0 g/dL (13.6-17.9) L 08/02/18 05:03 Hct 35.1 % (39.6-49.0) L 08/02/18 05:03 Plt Count 225 K/uL (152-406) 08/02/18 05:03 Sodium 143 mmol/L (136-145) 08/02/18 05:03 Potassium 3.8 mmol/L (3.5-5.1) 08/02/18 05:03 BUN 15 mg/dL (7-18) 08/02/18 05:03 Creatinine 0.87 mg/dL (0.55-1.3) 08/02/18 05:03 Glucose 170 mg/dL (74-106) H 08/02/18 05:03 Magnesium 1.8 mg/dL (1.8-2.4) 08/02/18 05:03 Triglycerides 82 mg/dL (<150) 07/31/18 06:29 Cholesterol 134 mg/dL (<200) 07/31/18 06:29 HDL Cholesterol 24 mg/dL (40-60) L 07/31/18 06:29 Cholesterol/HDL Ratio 5.58 07/31/18 06:29 Home Medications: Amox/Clavulanate [Augmentin 875-125 Tab] 875 mg PO BID #20 tab 08/03/18 Aspirin [Aspirin EC 81 MG] 81 mg PO DAILY #90 tablet. 08/03/18 Doxycycline Hyclate [Vibramycin] 100 mg PO BID #20 capsule 08/03/18 Gabapentin [Neurontin*] 100 mg PO BID PRN #60 cap 08/03/18 Insulin Detemir [Levemir Flextouch] 10 unit SQ BID #1 arjun 08/03/18 Lisinopril [Prinivil*] 5 mg PO DAILY #30 tab 08/03/18 Metformin ER [Glucophage ER*] 1 tab PO BID #60 tab.sa 08/03/18 New Medications: Amox/Clavulanate [Augmentin 875-125 Tab] 875 mg PO BID #20 tab Aspirin [Aspirin EC 81 MG] 81 mg PO DAILY #90 tablet. Doxycycline Hyclate [Vibramycin] 100 mg PO BID #20 capsule Gabapentin [Neurontin*] 100 mg PO BID PRN #60 cap PRN Reason: Pain Scale 2-4 (Mild) Insulin Detemir [Levemir Flextouch] 10 unit SQ BID #1 arjun Lisinopril [Prinivil*] 5 mg PO DAILY #30 tab Metformin ER [Glucophage ER*] 1 tab PO BID #60 tab.sa Patient Discharge Instructions: 1. Patient to establish care with a PCP to follow up this hospitalization. 2. Patient presented with diabetic foot cellulitis secondary to puncture wound to the plantar aspect of the left forefoot near the great toe. Patient failed outpatient antibiotic therapy. Patient admitted for IV antibiotic therapy. MRI shows no osteomyelitis. Arterial Doppler shows no peripheral vascular disease. Podiatry was consulted. Podiatry performed bedside I and D. His condition slowly improved. Patient required further wound care during his stay as packing was not done adequately. This was addressed by podiatry and specific instructions were given. This was followed with improvement. Blood and wound cultures negative. At discharge patient without any significant pain improved. At discharge patient will continue with Augmentin 875 mg 1 pill twice daily and doxycycline 100 mg 1 pill twice daily for 10 days. Patient will continue with wound care including packing. Patient to follow podiatry recommendations and instructions. Patient will be taught prior to discharge. Patient will follow up [facility] for further monitoring. 3. Patient with underlying diabetes mellitus type 2. This is uncontrolled. Patient previously on metformin and insulin 70/30. A1c 9.1. Medication was adjusted during his stay for better diabetic control. At discharge blood sugars better controlled. Patient will continue with Levemir 10 units subcu twice daily and metformin 500 mg 1 pill twice daily. Patient to monitor his blood sugars at least twice daily. Recommend to maintain blood sugars less 140 fasting and less than 200 after meals. Further adjustment can be done by his PCP. Patient to establish care with PCP in the area for continued management. Diabetic education along with medication education will be provided at discharge. 4. Patient with hypertension. Medication adjusted during his stay. At discharge he will continue with lisinopril 5 mg daily. Further adjustment can be done by his PCP. 5. Patient with diabetic neuropathy. Patient will continue with Neurontin 100 mg 1 pill twice daily as needed for pain. Further adjustment can be done by his PCP. 6. Patient with obesity, BMI 30. Lifestyle modification education provided. Diet: ADA Activity: Non-weight bearing (To the left foot. Patient to use crutches.) Time spent managing pt's care (in minutes): 55
[2018-08-03] MEDS: FAMOTIDINE 20 MG TAB PO SCH (08:34)
[2018-08-03] MEDS: INSULIN GLARGINE 100 UNITS/ML SQ SCH (08:34)
[2018-08-03] MEDS: CEFEPIME/SWI 1gm 10 ML IVP SCH (08:36)
[2018-08-03] MEDS: VANCOMYCIN 1.75 GM in NA CHLORIDE 0.9% 500 ML IVPB SCH (08:41)
[2018-08-03] MEDS: GABAPENTIN 100 MG CAP PO PRN (08:41)
[2018-08-03] MEDS ORDERED: LISINOPRIL 5 MG TAB PO SCH (09:00)
== END 2018-08-03 15:15 | disposition home or self-care (01) | DRG 638 ==
LOC: ER 18:14 → ERHOLD 21:06 → 2ND 21:21
PROVIDERS: ADMIT Internal Medicine; ATTEND Family Medicine
PROC: 0HDNXZZ Extraction of Left Foot Skin, External Approach (ICD-10-PCS; principal; 2018-07-30)
DX: E11.621 Type 2 diabetes mellitus with foot ulcer (principal); L97.421 Non-pressure chronic ulcer of left heel and midfoot limited to breakdown of skin; L03.116 Cellulitis of left lower limb; E11.65 Type 2 diabetes mellitus with hyperglycemia; I10 Essential (primary) hypertension; E11.628 Type 2 diabetes mellitus with other skin complications; E11.40 Type 2 diabetes mellitus with diabetic neuropathy, unspecified; E66.9 Obesity, unspecified; Z68.30 Body mass index [BMI] 30.0-30.9, adult; Z79.4 Long term (current) use of insulin; Z87.891 Personal history of nicotine dependence
CPT/HCPCS: 36415; 80048; 80061; 80202; 81003; 82962; 83036; 83735; 84439; 84443; 85025; 87040; 87070; 87075; 87077; 87186; 87205; 93925; 96365; 96367; 97163; 99285; J0360; J0692; J1650; J2543; J3475; J7030